=== PATIENT | female | born 2000 | race African-American/Black ===

== ENCOUNTER 2022-06-17 10:14 | Emergency (ER) | payer MEDICAID, OTHER ==
[~2022-06-17] VITALS: Ht 170.2 cm; Wt 75.0 kg
[2022-06-17 10:23] VITALS: BP 125/59
== END 2022-06-17 15:55 | disposition left against medical advice (07) ==
LOC: ER 11:42
DX: Z53.21 Procedure and treatment not carried out due to patient leaving prior to being seen by health care provider (principal)